=== PATIENT | female | born 1960 | race African-American/Black ===

== ENCOUNTER 2019-02-05 21:17 | Emergency (ER) | payer MEDICARE, OTHER ==
[~2019-02-05] VITALS: Ht 170.2 cm; Wt 121.1 kg
[~2019-02-05 21:17] MED LIST: HYDR-4833 PO; LISI-646 PO; OME20GT PO; TRAMADOL PO; TRIA25CA PO
[2019-02-05 22:23] LABS: Basophils # (auto) 0.1 uL; Basophils % (auto) 1.3 % (0.0-2.0); Eosinophils # (auto) 0.3 uL; Eosinophils % (auto) 2.6 % (0.0-7.0); Hematocrit 36.4 % (36.0-46.0); Hemoglobin 12.2 g/dL (12.2-16.2); Lymphocytes # (auto) 3.7 uL; Lymphocytes % (auto) 31.4 % (10.0-50.0); Mean Corpuscular Hemoglobin 27.6 pg (28.0-32.0); Mean Corpuscular Hgb Conc. 33.5 g/dL (32.0-36.0); Mean Corpuscular Volume 82.3 fL (80.0-100.0); Monocytes # (auto) 0.6 uL; Monocytes % (auto) 4.6 % (0.0-12.0); Neutrophils # (auto) 7.1 uL; Neutrophils % (auto) 60.1 % (37.0-80.0); Nucleated Red Blood Cells % 0.1 %; Platelet Count (auto) 307 10^3/uL (140-450); Red Blood Cells 4.42 10^6/uL (4.0-5.20); Red Cell Distribution Width 13.7 % (11.8-14.3); White Blood Cell 11.8 10^3/uL (4.4-10.8)
[2019-02-05 22:40] LABS: Albumin 3.2 g/dL (3.4-5.0); Calcium 8.6 mg/dL (8.5-10.1); Potassium 3.1 mmol/L (3.5-5.1)
[2019-02-05 22:41] LABS: INR 0.97 (0.9-1.15); Partial Thromboplastin Time 26.8 sec (23.64-32.05)
[2019-02-05 22:43] LABS: BUN/Creatinine Ratio 9.7; Bilirubin, Total 0.6 mg/dL (0.2-1.0); Total Protein 7.2 g/dL (6.4-8.2)
[2019-02-06] MEDS ORDERED: HYDROmorphone HCL 2 MG/ML VL IM ONE (01:30)
[2019-02-06] MEDS ORDERED: ONDANSETRON HCL 4 MG/2 ML VIAL IM ONE (01:30)
[2019-02-06 01:42] VITALS: BP 134/87
== END 2019-02-06 01:59 | disposition home or self-care (01) ==
LOC: ER 21:17
DX: M79.641 Pain in right hand (principal); R22.31 Localized swelling, mass and lump, right upper limb; I10 Essential (primary) hypertension; Z87.39 Personal history of other diseases of the musculoskeletal system and connective tissue; Z88.0 Allergy status to penicillin; Z88.8 Allergy status to other drugs, medicaments and biological substances; Z79.899 Other long term (current) drug therapy
CPT/HCPCS: 36415; 73200; 80053; 85025; 85610; 85730; 96372; 99284; J1170; J2405

== ENCOUNTER 2020-05-03 16:53 | Emergency (ER) | payer OTHER ==
[~2020-05-03] VITALS: Ht 170.2 cm; Wt 125.6 kg
[2020-05-03] MEDS ORDERED: cloNIDine HCL 0.1 MG TAB PO ONE (18:15)
[2020-05-03] MEDS ORDERED: KETOROLAC TROMETH 60MG/2ML VIAL IM ONE (18:15)
[2020-05-03 21:16] VITALS: BP 165/92
== END 2020-05-03 20:21 | disposition home or self-care (01) ==
LOC: ER 16:53
DX: S16.1XXA Strain of muscle, fascia and tendon at neck level, initial encounter (principal); M47.892 Other spondylosis, cervical region; R03.0 Elevated blood-pressure reading, without diagnosis of hypertension; M19.90 Unspecified osteoarthritis, unspecified site; I10 Essential (primary) hypertension; Z91.041 Radiographic dye allergy status; W01.0XXA Fall on same level from slipping, tripping and stumbling without subsequent striking against object, initial encounter; Y93.89 Activity, other specified; Y92.89 Other specified places as the place of occurrence of the external cause; Y99.8 Other external cause status
CPT/HCPCS: 70450; 72125; 96372; 99285; J1885